=== PATIENT | male | born 1945 | race Caucasian/White ===

== ENCOUNTER 2018-12-08 11:23 | Emergency (ER) | payer MEDICARE ==
[2018-12-08] MEDS ORDERED: AMOXicillin 250 MG CAP ONE (11:43)
== END 2018-12-08 12:05 | disposition home or self-care (01) ==
LOC: MADERS 11:23
DX: J02.0 Streptococcal pharyngitis (principal)
CPT/HCPCS: 99282

== ENCOUNTER 2024-11-22 08:44 | Outpatient (CLI) | payer MEDICARE | END 2024-11-22 08:45 | disposition home or self-care (01) | LOC: MADLAB 08:44 | PROVIDERS: ATTEND Internal Medicine | DX: E11.65 Type 2 diabetes mellitus with hyperglycemia (principal); E05.90 Thyrotoxicosis, unspecified without thyrotoxic crisis or storm | CPT/HCPCS: 36415; 83036; 84439; 84443; 84480 ==